=== PATIENT | male | born 1950 | race African-American/Black ===

== ENCOUNTER 2016-09-30 23:32 | Emergency (ER) | payer MEDICARE ==
[~2016-09-30] VITALS: Ht 167.6 cm; Wt 78.0 kg
[2016-10-01 00:24] LABS: DEFINITIVE VIEW TRANSMISSION; Hematocrit 42.5 % (41.0-53.0); Hemoglobin 13.7 g/dL (13.5-17.5); Mean Corpuscular Hemoglobin 25.5 pg (28.0-32.0); Mean Corpuscular Hgb Conc. 32.2 g/dL (32.0-36.0); Mean Corpuscular Volume 79.1 fL (80.0-100.0); Mean Platelet Volume 8.4 fL (7.4-10.4); Platelet Count (auto) 283 10^3/uL (140-450); Red Cell Distribution Width 14.3 % (11.6-16.0); SUSPECT VIEW TRANSMISSION; White Blood Cell 13.3 10^3/uL (4.4-10.8)
[2016-10-01 00:31] LABS: Metamyelocytes % 0; Myelocytes % 0; Promyelocytes % 0; Reactive Lymphocytes 0
[2016-10-01 00:39] LABS: Albumin 4.4 g/dL (3.4-5.0); BUN/Creatinine Ratio 14.1; Calcium 9.7 mg/dL (8.5-10.1); Potassium 3.5 mmol/L (3.5-5.1)
[2016-10-01 00:42] LABS: Bilirubin, Total 0.6 mg/dL (0.2-1.0); Total Protein 8.8 g/dL (6.4-8.2)
[2016-10-01 00:48] LABS: B-Type Natriuretic Peptide 16.25 pg/mL (0-100)
[2016-10-01 01:15] LABS: Hypochromia Slight; Microcytosis Slight; Platelet Estimate Adequate; Stomatocytes Few
[2016-10-01 01:21] LABS: Temperature: 21.9 C (20.0-25.0)
[2016-10-01 01:42] LABS: Urine Bilirubin Negative (Negative); Urine Blood 1+ /uL (Negative); Urine Color Yellow (Yellow); Urine Glucose Normal (Normal); Urine Ketone Negative (Negative); Urine Nitrite Negative (Negative); Urine RBC 7 /hpf (0 - 3); Urine Urobilinogen Normal (Negative); Urine pH 6.5 (5.0-8.0)
[2016-10-01 08:48] VITALS: BP 130/83
[2016-10-01] MEDS ORDERED: CIPROFLOXACIN HCL 500 MG TAB PO ONE (09:00)
== END 2016-10-01 09:59 | disposition home or self-care (01) ==
LOC: ER 23:36
DX: N39.0 Urinary tract infection, site not specified (principal); L72.0 Epidermal cyst; Z85.46 Personal history of malignant neoplasm of prostate
CPT/HCPCS: 36415; 51702; 76870; 80053; 81001; 83880; 85007; 85027